=== PATIENT | male | born 1970 | race Caucasian/White ===

== ENCOUNTER 2017-05-27 20:08 | Emergency (ER) | payer OTHER ==
--- NOTE | 2017-05-27 20:34 | CPEKG ---
Heart Rate: 91 RR Interval: 659 P-R Interval: 164 QRSD Interval: 100 QT Interval: 348 QTC Interval: 429 P [place]: 36 QRS [place]: -37 T Wave [place]: 36 EKG Severity - BORDERLINE ECG - EKG Impression: SINUS RHYTHM EKG Impression: LEFT AXIS DEVIATION EKG Impression: POOR R WAVE PROGRESSION Electronically Signed By: Sawyer Cook 29-May-2017 10:56:22
--- NOTE | 2017-05-27 20:41 | EDPHY ---
HPI/HX/ROS/PE/MDM Narrative: CHIEF COMPLAINT: Syncope. HPI: The patient is a 46-year-old male who presents with syncopal episode. The patient was watching his 5 year old son's baseball game. He was eating dinner and drinking a beer and began to feel lightheaded. He tried to walk it off and then passed out. Patient was told he was assisted to the ground. He was pale and diaphoretic. Patient reports feeling hot. EMS arrived and found patient to be tachycardic. After sitting upright patient's symptoms resolved. He denies chest pain, shortness of breath, or palpitations. No changes in medication. No cardiac history. No recent illness. REVIEW OF SYSTEMS: Aside from elements discussed in the HPI, a comprehensive 10-point review of systems was reviewed and is negative. PMH: Depression. SOCIAL HISTORY: [employer]. PHYSICAL EXAM: General: Patient is alert, in no acute distress. ENT: Eyes are normal to inspection. ENT inspection normal. Neck: Normal inspection. Full range of motion. Respiratory: No respiratory distress. Breath sounds normal bilaterally. Cardiovascular: Regular rate and rhythm. Strong peripheral pulses. Abdomen: The abdomen is nontender to palpation. There are no peritoneal signs. There are normal bowel sounds. Back: Normal to inspection. No tenderness to palpation. Skin: Normal color. No rash. Warm and dry. Extremities: Normal appearance. Full range of motion. Neuro: Oriented x3. Normal motor function. Normal sensory function. ED Course: EKG was ordered and interpreted by myself. Please see [facility] system for official reading. Plan to check basic lab work, electrolytes, and Troponin. Chest x-ray ordered. MDM: This is a healthy male without cardiovascular risk factors who presents after syncopal episode without chest pain. He is now asymptomatic. His labs are normal, and I see no signs of ARF, ACS, anemia or electrolyte abnormality. I think the patient is very low risk for PE given lack of SOB or chest pain, and lack of risk factors. The patient is comfortable with the plan to be discharged home. We discussed strict return precautions. - Data Points Imaging: Discussed imaging studies w/ bingo caller Radiologist, I viewed and interpreted images myself Laboratory Results: Laboratory Results 05/27/17 20:37 05/27/17 20:37 05/27/17 05/27/17 20:37 20:37 WBC 6.13 10^3/uL 10^3/uL (3.80-9.50) RBC 5.02 10^6/uL 10^6/uL (4.40-6.38) Hgb 16.0 g/dL g/dL (13.7-17.5) Hct 45.4 % % (40.0-51.0) MCV 90.4 fL fL (81.5-99.8) MCH 31.9 pg pg (27.9-34.1) MCHC 35.2 g/dL g/dL (32.4-36.7) RDW 13.2 % % (11.5-15.2) Plt Count 258 10^3/uL 10^3/uL (150-400) MPV 9.3 fL fL (8.7-11.7) Neut % (Auto) 56.5 % % (39.3-74.2) Lymph % (Auto) 28.9 % % (15.0-45.0) [place] % (Auto) 10.6 % % (4.5-13.0) Eos % (Auto) 2.9 % % (0.6-7.6) Baso % (Auto) 0.8 % % (0.3-1.7) Nucleat RBC Rel Count 0.0 % % (0.0-0.2) Absolute Neuts (auto) 3.46 10^3/uL 10^3/uL (1.70-6.50) Absolute Lymphs (auto) 1.77 10^3/uL 10^3/uL (1.00-3.00) Absolute Monos (auto) 0.65 10^3/uL 10^3/uL (0.30-0.80) Absolute Eos (auto) 0.18 10^3/uL 10^3/uL (0.03-0.40) Absolute Basos (auto) 0.05 10^3/uL 10^3/uL (0.02-0.10) Absolute Nucleated RBC 0.00 10^3/uL 10^3/uL (0-0.01) Immature Gran % 0.3 % % (0.0-1.1) Immature Gran # 0.02 10^3/uL 10^3/uL (0.00-0.10) Sodium 140 mEq/L mEq/L (134-144) Potassium 4.5 mEq/L mEq/L (3.5-5.2) Chloride 108 mEq/L mEq/L (97-110) Carbon Dioxide 18 mEq/l L mEq/l (22-31) Anion Gap 14 mEq/L mEq/L (8-16) BUN 15 mg/dL mg/dL (7-23) Creatinine 0.9 mg/dL mg/dL (0.7-1.3) Estimated GFR > 60 Glucose 100 mg/dL mg/dL (70-100) Calcium 9.1 mg/dL mg/dL (8.5-10.4) Troponin I Pending Medications Given: Discontinued Medications Sodium Chloride (Ns) 1,000 mls @ 0 mls/hr IV ONCE ONE; Wide Open PRN Reason: Protocol Stop: 05/27/17 20:46 Last Admin: 05/27/17 20:57 Dose: 1,000 mls General Time Seen by Provider: 05/27/17 20:35 Initial Vital Signs: Initial Vital Signs Temperature (C) 36.8 C 05/27/17 20:16 Heart Rate 92 05/27/17 20:16 Respiratory Rate 16 05/27/17 20:16 Blood Pressure 112/79 05/27/17 20:16 O2 Sat (%) 98 05/27/17 20:16 O2 Delivery Mode Room Air Allergies/Adverse Reactions: No Known Allergies Allergy (Unverified 01/17/12 18:19) Home Medications: Medication Instructions Recorded Sertraline HCl 05/27/17 Departure - Departure Disposition: Home, Routine, Self-Care Clinical Impression: Syncope Condition: Good Instructions: Syncope (ED) Additional Instructions: Return to the Emergency Department if you develop chest pain, shortness of breath, palpitations, or other concerns. Followup with your primary care physician as needed. Referrals: BRENDA KEARNEY [Primary Care Provider] - As per Instructions Report Scribed for: Nilay Norton Report Scribed by: Yue Vallejo Date of Report: 05/27/17 Time of Report: 20:41 Physician Review and Approval Statement: Portions of this note were transcribed by a medical assisting program director. I personally performed the history, physical exam, and medical decision-making; and confirmed the accuracy of the information in the transcribed note.
[2017-05-27] MEDS ORDERED: NS 1,000 ML IV ONE (20:45)
[2017-05-27 20:49] LABS: % IMMATURE GRANULYOCYTES 0.3 % (0.0-1.1); ABSOLUTE IMMATURE GRANULOCYTES 0.02 10^3/uL (0.00-0.10); ADD DIFF? NO; ADD MORPH? NO; ADD SCAN? NO; ATYPICAL LYMPHOCYTE FLAG 30 (0-99); FRAGMENT RBC FLAG 0 (0-99); HEMATOCRIT 45.4 % (40.0-51.0); LEFT SHIFT FLG 0 (0-99); LIPEMIA HEMOLYSIS FLAG 90 (0-99); MEAN CELL HEMOGLOBIN 31.9 pg (27.9-34.1); MEAN CELL HEMOGLOBIN CONCENTR. 35.2 g/dL (32.4-36.7); MEAN CELL VOLUME 90.4 fL (81.5-99.8); MEAN PLATELET VOLUME 9.3 fL (8.7-11.7); PLATELET CLUMPS FLAG 0 (0-99); PLATELET COUNT 258 10^3/uL (150-400); RED BLOOD CELL COUNT 5.02 10^6/uL (4.40-6.38); RED CELL DISTRIBUTION WIDTH 13.2 % (11.5-15.2)
[2017-05-27 21:01] LABS: ANION GAP 14 mEq/L (8-16); CALCIUM 9.1 mg/dL (8.5-10.4); CARBON DIOXIDE 18 mEq/l (22-31); CHLORIDE 108 mEq/L (97-110); CREATININE 0.9 mg/dL (0.7-1.3); GLOMERULAR FILTRATION RATE > 60; GLUCOSE 100 mg/dL (70-100); POTASSIUM 4.5 mEq/L (3.5-5.2); SODIUM 140 mEq/L (134-144)
[2017-05-27 21:13] LABS: TROPONIN I 0.012 ng/mL (0-0.034)
[2017-05-27 21:23] VITALS: PULSE 95
[2017-05-27 22:10] VITALS: BP 123/78; RESP 19; TEMP 97.9; O2SAT 95
== END 2017-05-27 22:09 | disposition home or self-care (01) ==
DX: R55 Syncope and collapse (principal); E86.9 Volume depletion, unspecified